=== PATIENT | male | born 1950 | race Hispanic/Latino ===

== ENCOUNTER 2020-09-25 15:38 | Emergency (ER) | payer OTHER ==
[~2020-09-25] VITALS: Ht 172.7 cm; Wt 92.1 kg
[~2020-09-25 15:38] MED LIST: ASPI-556 PO; CHOL100L MC; CYAN500L PO; HYDROCHLOROTHIAZIDE; LISI-809 PO; METF-444 PO; VITAMIN E PO
[2020-09-25 15:45] VITALS: BP 148/76
[2020-09-25 18:28] VITALS: BP 120/70
== END 2020-09-25 19:58 | disposition left against medical advice (07) ==
LOC: EDH 15:38
DX: H57.10 Ocular pain, unspecified eye (principal); Z53.21 Procedure and treatment not carried out due to patient leaving prior to being seen by health care provider